=== PATIENT | female | born 1945 | race Caucasian/White ===

== ENCOUNTER 2017-04-20 13:21 | Emergency (ER) | payer MEDICARE ==
[~2017-04-20] VITALS: Ht 170.2 cm; Wt 84.0 kg
[2017-04-20 16:12] VITALS: BP 130/64
== END 2017-04-20 16:14 | disposition home or self-care (01) ==
LOC: ED 16:08
DX: S53.402A Unspecified sprain of left elbow, initial encounter (principal); S00.01XA Abrasion of scalp, initial encounter; I10 Essential (primary) hypertension; W01.0XXA Fall on same level from slipping, tripping and stumbling without subsequent striking against object, initial encounter; Y93.89 Activity, other specified; Y92.830 Public park as the place of occurrence of the external cause; Y99.8 Other external cause status
CPT/HCPCS: 70450; 99284